=== PATIENT | female | born 1945 | race African-American/Black ===

== ENCOUNTER 2016-06-25 15:29 | Emergency (ER) | payer MEDICARE, OTHER ==
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
[2016-06-25] MEDS ORDERED: ZOFRAN IV ONE (20:24)
[2016-06-25] MEDS ORDERED: DILAUDID IV ONE (20:24)
[2016-06-25 21:11] LABS: Basophils % (Auto) 0.3 % (0.0-1.8); Eosinophils % (Auto) 1.9 % (0.0-4.3); Hematocrit 36.3 % (30.3-42.9); Hemoglobin 11.7 gm/dl (10.1-14.3); Mean Corpuscular HGB Conc 32 % (30-34); Mean Corpuscular Hemoglobin 28 pg (28-32); Mean Corpuscular Volume 87 fl (79-97); Platelet Count 269 K/mm3 (140-440); Red Blood Count 4.15 M/mm3 (3.65-5.03); White Blood Count 5.7 K/mm3 (4.5-11.0)
[2016-06-25 21:30] LABS: Blood Urea Nitrogen 14 mg/dL (7-17); Calcium 8.3 mg/dL (8.4-10.2); Carbon Dioxide 32 mmol/L (22-30); Glucose 130 mg/dL (65-100)
[2016-06-25 21:31] LABS: Anion Gap 15 mmol/L; Chloride 101.1 mmol/L (98-107); Potassium 3.4 mmol/L (3.6-5.0); Sodium 145 mmol/L (137-145)
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
[2016-06-25 22:24] VITALS: BP 160/52
[2016-06-25] MEDS ORDERED: FLEET PR ONE (23:21)
== END 2016-06-26 00:02 | disposition home or self-care (01) ==
LOC: ED 15:29
DX: S32.10XA Unspecified fracture of sacrum, initial encounter for closed fracture (principal); T24.201A Burn of second degree of unspecified site of right lower limb, except ankle and foot, initial encounter; R33.9 Retention of urine, unspecified; Z87.39 Personal history of other diseases of the musculoskeletal system and connective tissue; Z87.442 Personal history of urinary calculi; W18.30XA Fall on same level, unspecified, initial encounter; Y93.9 Activity, unspecified; Y92.9 Unspecified place or not applicable; Y99.9 Unspecified external cause status
CPT/HCPCS: 36415; 51702; 72192; 80048; 85025; 96374; 96375; 99284; J1170; J2405

== ENCOUNTER 2016-09-30 13:46 | Outpatient (CLI) | payer MEDICARE, OTHER ==
--- NOTE | 2016-09-30 15:01 | Mammography Report ---
BONE DENSITY STUDY: DEFINITIONS: BMD = Bone Mineral Density T-score = BMD related to mean peak bone mass of young adult (mean expressed in Standard Deviation) Z-score = Age matched BMD expressed in SD World Health Organization (WHO) Diagnostic Criteria Normal T-score > -1 SD Osteopenia T-score between -1 and -2.4 SD Osteoporosis T-score -2.5 SD or below FINDINGS: The weighted average BMD of lumbar spine L1-L4 is 0.505 with a T-score of -4.9. The weighted average BMD of hip is 0.494 with a T-score of -3.7. IMPRESSION: The patient's average T-score is diagnostic for osteoporosis and high relative risk for fracture. NOTE: BMD is not the only risk factor for fracture; also consider factors such as the patient's age, risk of falling, previous osteoporotic fracture, family history of osteoporotic fractures, current smoker, and low body weight. Saldaña's triangle is a region of interest in femur, predominantly of trabecular bone. It is not a true anatomic site, and [facility] does not recommend its use clinically.
== END 2016-09-30 13:47 | disposition home or self-care (01) ==
LOC: MAMMO 13:46
PROVIDERS: ATTEND Orthopaedic Surgery
DX: M81.0 Age-related osteoporosis without current pathological fracture (principal)
CPT/HCPCS: 77080

== ENCOUNTER 2018-09-23 12:52 | Outpatient (CLI) | payer MEDICARE, OTHER ==
--- NOTE | 2018-09-23 15:37 | Mammography Report ---
BONE DEXA:09/23/18 CLINICAL: Postmenopausal. No comparison. TECHNIQUE: Multi-site bone DEXA performed on an Hologic scanner. FINDINGS: The average BMD of the lumbar spine L1, L3 and L4 is 0.539g/cm squared with a T-score of -4.7 and a Z-score of -2.2. The L2 vertebra was excluded as an outlier because of kyphoplasty cement. The average BMD of the left hip is 0.450g/cm squared with a T-score of -4.0 and a Z-score of -2.3. The average BMD of the right hip is 0.480g/cm squared with a T-score of -3.8 and a Z-score of -2.0. The average BMD of the left forearm is 0.351g/cm squared with a T-score of -4.2 and a Z-score of -1.6. IMPRESSION: WHO classification: Osteoporosis with high fracture risk based on lumbar spine, bilateral hip and left forearm measurements. RECOMMENDATION: Clinical correlation and routine screening. DEFINITIONS: BMD = Bone Mineral Density T-score = BMD related to mean peak bone mass of young adult (mean expressed in Standard Deviation) Z-score = Age matched BMD expressed in SD World Health Organization (WHO) Diagnostic Criteria Normal T-score > -1 SD Osteopenia T-score between -1 and -2.4 SD Osteoporosis T-score -2.5 SD or below NOTE: BMD is not the only risk factor for fracture. One should also consider factors such as the patient's age, risk of falling, previous osteoporotic fracture, family history of osteoporotic fractures, current smoker, and low body weight. Z-scores are not calculated if >80 years of age.
== END 2018-09-23 12:53 | disposition home or self-care (01) ==
LOC: SPVWC 12:52
PROVIDERS: ATTEND Family Medicine
DX: Z13.820 Encounter for screening for osteoporosis (principal); M81.0 Age-related osteoporosis without current pathological fracture; Z78.0 Asymptomatic menopausal state
CPT/HCPCS: 77080